=== PATIENT | female | born 1935 | race Caucasian/White ===

== ENCOUNTER 2017-07-25 15:06 | Emergency (ER) | payer OTHER ==
[~2017-07-25] VITALS: Ht 167.6 cm; Wt 68.0 kg
[~2017-07-25 15:06] MED LIST: ASPI81 PO; CENTTAB9 PO; CLON-352 PO; FLUO60TA PO; HCTZ50TA PO; HYDR200T42 PO; PRIL20CA PO; SIMV20 PO; SYMB80AE INH; VITA400C28 PO; ZOFR4TAB3 SL
[2017-07-25 15:09] VITALS: BP 186/90; PULSE 73; RESP 18; TEMP 98.5; O2SAT 97
[2017-07-25] MEDS ORDERED: ATOR20TA15 PO (15:22)
[2017-07-25] MEDS ORDERED: FLUT50SP EACH NARE (15:22)
[2017-07-25] MEDS ORDERED: CENTCHW4 CHEW (15:22)
[2017-07-25] MEDS ORDERED: FLUO10TA PO (15:22)
[2017-07-25] MEDS ORDERED: OMEP20TA93 PO (15:22)
[2017-07-25] MEDS ORDERED: ASPI81CH7 CHEW (15:22)
[2017-07-25] MEDS ORDERED: VITATAB56 PO (15:22)
[2017-07-25] MEDS ORDERED: TRIA37.5 PO (15:22)
--- NOTE | 2017-07-25 15:24 | PD ---
HPI Chief Complaint: Pain: Acute or Chronic Time Seen by Provider: 15:15 Travel History International Travel<30 days: No Contact w/Intl Traveler<30days: No Traveled to known affect area: No History of Present Illness HPI Patient is an 81-year-old female who presents to emergency room with complaints of right-sided knee pain. Patient reports that pain began acutely last night around 1:30 AM, denies any trauma leading up to this knee pain. Patient reports that she went to get up this morning at 1 AM when she had severe pain to her right knee, reports that the pain is nonradiating in nature. Reports that at baseline, she does not use a walker or cane to ambulate. She reports having 2 mechanical falls within the past 2 weeks, reports that she felt fine and was ambulatory up until 1:30 AM last night. Patient reports chronic low back pain, denies any sciatica, denies any incontinence of urine or stool, patient's only complaint is right-sided knee pain. Patient with no fever or chills, no other complaints. Patient does report that only Tylenol helps her symptoms, she did not take any Tylenol this morning. PFSH Past Medical History Arthritis: Yes Asthma: Yes Autoimmune Disease: Yes (SARCODOSIS) Anxiety: Yes Depression: Yes Cancer: Yes (SKIN CA SURG.,UNKNOWN [employer] CA) Cardiovascular Problems: Yes (HTN, CHOL) High Cholesterol: Yes Diabetes: No Diminished Hearing: No Diverticulitis: Yes Endocrine: No GERD: Yes Genitourinary: Yes (KIDNEY DISEASE STAGE 3) Hiatal Hernia: Yes Hypertension: Yes Implanted Vascular Access Dvce: No Musculoskeletal: Yes (BACK AND NECK PROBLEMS) Neurologic: Yes Respiratory: Yes (SARCODOSIS) Immunizations Current: Yes Sleep Apnea: Yes (NON C PAP) Tetanus Vaccination: Unknown ?: Not Dilation and Curettage (D&C): Yes Past Surgical History Eye Surgery: Yes (CATARACT SX BOTH EYES) Gynecologic Surgery: Yes (D AND C, HYSTERECTOMY) Hysterectomy: Yes (1998.) Oral Surgery: Yes (TEETH EXTRACTED) Pacemaker: No Tympanostomy Tube: Yes Other Surgery: Yes (MEDIASTYNUMOSCOPY.) Social History Alcohol Use: No Tobacco Use: No (SMOKED 1/2-2 PPD X 40 YRS. QUIT IN 1992.) Substance Use: No Allergies-Medications (Allergen,Severity, Reaction): Coded Allergies: Sulfa (Sulfonamide Antibiotics) (Unverified Allergy, Severe, Rash, 07/25/17 ) penicillin G (Unverified Allergy, Severe, Swelling in throat, 07/25/17) prednisone (Verified Allergy, Severe, 07/25/17) Reported Meds & Prescriptions Reported Meds & Active Scripts Active Reported Fluticasone Nasal Posey 50 Mcg/Act Naspr 100 Mcg EACH NARE DAILY 50 mcg/spray Triamterene-Hydrochlorothiazide 37.5-25 Mg Tab 1 Tab PO DAILY Atorvastatin (Atorvastatin Calcium) 20 Mg Tab 20 Mg PO HS Centrum (Multiple Vitamins W/ Minerals) 1 Chew 1 Tab CHEW DAILY Omeprazole 20 Mg Tab 20 Mg PO DAILY Fluoxetine (Fluoxetine HCl) 10 Mg Tab 10 Mg PO DAILY Vitamin D-400 (Cholecalciferol) 400 Unit Tab 400 Units PO DAILY Aspirin Children's (Aspirin) 81 Mg Chew 81 Mg CHEW DAILY Review of Systems General / Constitutional: No: Fever Eyes: No: Visual changes HENT: No: Headaches Cardiovascular: No: Chest Pain or Discomfort Respiratory: No: Shortness of Breath Gastrointestinal: No: Abdominal Pain Genitourinary: No: Dysuria Musculoskeletal: Positive: Limited ROM (right knee), Pain (right knee) Skin: No Rash Neurologic: No: Weakness Psychiatric: No: Depression Endocrine: No: Polydipsia Hematologic/Lymphatic: No: Easy Bruising Physical Exam Narrative GENERAL: Mild distress SKIN: Focused skin assessment warm/dry. HEAD: Atraumatic. Normocephalic. EYES: Pupils equal and round. No scleral icterus. No injection or drainage. ENT: No nasal bleeding or discharge. Mucous membranes pink and moist. NECK: Trachea midline. No JVD. CARDIOVASCULAR: Regular rate and rhythm. No murmur appreciated. RESPIRATORY: No accessory muscle use. Clear to auscultation. Breath sounds equal bilaterally. GASTROINTESTINAL: Abdomen soft, non-tender, nondistended. Hepatic and splenic margins not palpable. MUSCULOSKELETAL: No obvious deformities. No clubbing. No cyanosis. No edema. Patient with pain with active range of motion to the right knee, there is no swelling, there is no obvious Garcia's cyst, there is no redness or erythema. Patient with no obvious fractures NEUROLOGICAL: Awake and alert. No obvious cranial nerve deficits. Motor grossly within normal limits. Normal speech. PSYCHIATRIC: Appropriate mood and affect; insight and judgment normal. Data Data Last Documented VS Vital Signs Date Time Temp Pulse Resp B/P (MAP) Pulse Ox O2 Delivery O2 Flow Rate FiO2 07/25/17 15:09 98.5 73 18 186/90 (122) 97 Orders Orders Knee, Complete (4vws) (07/25/17 ) Acetaminophen (Tylenol) (07/25/17 15:30) MDM Medical Decision Making Medical Screen Exam Complete: Yes Emergency Medical Condition: Yes Medical Record Reviewed: Yes Interpretation(s) Vital Signs Date Time Temp Pulse Resp B/P (MAP) Pulse Ox O2 Delivery O2 Flow Rate FiO2 07/25/17 15:09 98.5 73 18 186/90 (122) 97 Differential Diagnosis Garcia's cyst, arthritis, septic joint, bursitis Narrative Course 81-year-old female who presents the emergency room with complaints of right knee pain which started around 1:30 AM this morning, no obvious trauma or falls. X-ray of the right knee was ordered, Tylenol was administered for pain. Last Impressions Knee X-Ray 07/25/17 0000 Signed Impressions: Service Date/Time: July 15:27 - CONCLUSION: 1. No acute fracture or dislocation. 2. 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 Jay Wylie MD Patient with degenerative osteoarthritis most prominent in the medial compartment. patient feeling much better after acetaminophen administered. Discussed with patient need for rest, ice, NSAIDs for pain. Patient will follow -up with her orthopedist, Dr. Londono as outpatient. Patient reports that she does have a walker at home from her prior left knee replacement. Plan to trail ambulate her in the ER prior to discharge from ER. Patient ambulatory around ER with walker. Patient is safe to be discharged home with outpatient follow up Diagnosis Primary Impression: Osteoarthritis Qualified Codes: M17.11 - Unilateral primary osteoarthritis, right knee Patient Instructions: General Instructions Additional Instructions: Please provide patient with a copy of her study at discharge Please follow up with your primary care doctor in 2-3 days Return to the ER if symptoms worsen or progress Return to the ER as needed Please follow up with your orthopedic surgeon Rest/ice and elevate your leg, please take NSAIDS for pain control Disposition: 01 DISCHARGE HOME Condition: Stable Emeli Zendejas DO Jul 25, 2017 15:24
[2017-07-25] MEDS ORDERED: ACETAMINOPHEN 325 MG TAB PO ONE (15:30)
--- NOTE | 2017-07-25 16:18 | RADRPT ---
EXAM DATE/TIME: 07/25/2017 15:27 [facility] COMPARISON: No previous studies available for comparison. INDICATIONS : Fall last week out of bed and landed on knee. MEDICAL HISTORY : sarcoidosis SURGICAL HISTORY : Lobectomy. ENCOUNTER: Initial ACUITY: 1 week PAIN SCORE: 6/10 LOCATION: Right Knee FINDINGS: Four view examination of the right knee demonstrates no evidence of fracture or dislocation. Bony mi neralization is normal. Degenerative osteoarthritis most prominently of the medial compartment. The s uprapatellar soft tissues have a normal configuration. CONCLUSION: 1. No acute fracture or dislocation. 2. 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 Jay Wylie MD on July 25, 2017 at 16:15 Board Certified Radiologist. This report was verified electronically.
[2017-07-25 17:02] VITALS: BP 145/65
== END 2017-07-25 17:08 | disposition home or self-care (01) ==
LOC: PHED 15:06
DX: M17.11 Unilateral primary osteoarthritis, right knee (principal); G89.29 Other chronic pain; M54.5 Low back pain; E78.00 Pure hypercholesterolemia, unspecified; F32.9 Major depressive disorder, single episode, unspecified; F41.9 Anxiety disorder, unspecified; I12.9 Hypertensive chronic kidney disease with stage 1 through stage 4 chronic kidney disease, or unspecified chronic kidney disease; N18.3 Chronic kidney disease, stage 3 (moderate); Z87.891 Personal history of nicotine dependence
CPT/HCPCS: 73564; 99283